=== PATIENT | male | born 1945 | race Caucasian/White ===

== ENCOUNTER 2017-11-12 11:08 | Outpatient (RCR) | payer MEDICARE ==
[~2017-11-12 11:08] MED LIST: ALB18R INH; AMLO-99 PO; ASPI-1471 PO; AZIT-1 PO; CALC-515 PO; CHOL100052 PO; CIPR-345 PO; DIPH-638 PO; GOLYTE PO; IBUP-56 PO; LOSA-54 PO; NIA500 PO; NIAC500T85 PO; OMEG500C5 PO; OMEP-218 PO; PHEN200T32 PO; PNEU0.5D3 IM; PRED20TA6 PO; ROSU20TA23 PO; SIMV-54 PO; TAMS0.4C25 PO; VERA120C9 PO; VERA240C10 PO
== END 2017-11-13 13:44 | disposition home or self-care (01) ==
LOC: RAON 11:08
PROVIDERS: ATTEND Radiology Radiation Oncology
DX: Z85.46 Personal history of malignant neoplasm of prostate (principal); E78.00 Pure hypercholesterolemia, unspecified; I10 Essential (primary) hypertension; E07.9 Disorder of thyroid, unspecified; Z79.82 Long term (current) use of aspirin; Z79.899 Other long term (current) drug therapy

== ENCOUNTER 2017-11-13 14:54 | Outpatient (RCR) | payer MEDICARE ==
[2017-11-12 11:24] VITALS: BP 130/84
== END 2017-11-23 10:22 | disposition home or self-care (01) ==
LOC: RAON 14:54
PROVIDERS: ATTEND Radiology Radiation Oncology
DX: Z85.46 Personal history of malignant neoplasm of prostate (principal); E78.00 Pure hypercholesterolemia, unspecified; I10 Essential (primary) hypertension; E07.9 Disorder of thyroid, unspecified; Z79.82 Long term (current) use of aspirin; Z79.899 Other long term (current) drug therapy
CPT/HCPCS: 36415; 84153; G0463; 99212

== ENCOUNTER → 2017-11-15 | Outpatient (CLI) | payer MEDICARE ==
--- NOTE | 2017-11-15 21:01 | RADIOLOGY IMAGING REPORT ---
FACILITY: [facility] - [place] PATIENT NAME: Armen West : 1945 MR: [id number] V: [id number] EXAM DATE: ORDERING PHYSICIAN: NEETU FAUST TECHNOLOGIST: Location: [facility] [place] Patient: Armen West : 1945 Visit/Account:[id number] Date of Sevice: 11/15/2017 EXAMINATION: CT pelvis without IV contrast HISTORY: History of prostate cancer. Follow-up prior bone abnormality. TECHNIQUE: Thin axial CT images of the pelvis were obtained without IV contrast, with coronal and sag ittal 2D reconstructed images. One of the following dose optimization techniques was utilized in the performance of this exam: Autom ated exposure control; adjustment of the mA and/or kV according to the patient's size; or use of an i terative reconstruction technique. Specific details can be referenced in the facility's radiology C T exam operational policy. COMPARISON: CT abdomen/pelvis 03/01/2017. MR pelvis 03/14/2017. FINDINGS: Small sclerotic foci in both iliac bones appear stable from the prior CT, including a focus of patchy sclerosis in the posterior left iliac bone and along the superior right iliac crest. No new or progr essive osseous lesions. No CT evidence of any discrete osseous lesion along the left sacrum to corres pond with the finding on the prior MRI. No acute osseous findings in the bony pelvis. Normal alignmen t at the hips and sacroiliac joints. Visualized portions of the small bowel and colon are normal in caliber, with scattered colonic divert iculosis. No pelvic adenopathy or free fluid. Brachytherapy seeds in the prostate. Vascular calcifica tions. IMPRESSION: 1. Small sclerotic regions in both iliac bones appear stable by CT and are favored to be benign. No n ew or progressive osseous lesions to suggest metastatic disease. 2. No acute findings in the pelvis. 3. Colonic diverticulosis. 4. Brachytherapy seeds in the prostate. Report Dictated By: Tito Dai MD at 11/15/2017 8:48 PM Report E-Signed By: Tito Dai MD at 11/15/2017 8:57 PM WSN:[id number]
== END ==
LOC: CT 15:18
PROVIDERS: ATTEND Radiology Radiation Oncology
DX: K57.30 Diverticulosis of large intestine without perforation or abscess without bleeding (principal); Z85.46 Personal history of malignant neoplasm of prostate
CPT/HCPCS: 72192

== ENCOUNTER → 2018-10-08 | Outpatient (CLI) | payer MEDICARE ==
[~2018-10-08] MED LIST changes: +AMLO-113 PO; -AMLO-99 PO; +CLON-327 PO; +FLU180SY11 IM; +PNEI IJ
== END ==
LOC: LAB 14:53
PROVIDERS: ATTEND Family Medicine
DX: Z92.89 Personal history of other medical treatment (principal); Z72.89 Other problems related to lifestyle
CPT/HCPCS: 36415; G0472; 86803

== ENCOUNTER 2018-12-17 08:58 | Outpatient (RCR) | payer MEDICARE ==
[2018-12-16 13:31] VITALS: BP 138/91
[2018-12-16 13:46] LABS: PLATELET COUNT, AUTOMATED 187 K/uL (150-450)
[~2018-12-17 08:58] MED LIST changes: -AMLO-113 PO; +AMLO-127 PO
--- NOTE | 2018-12-17 10:51 | ONCOLOGY FOLLOW UP NOTE ---
EVENT DATE: December 17, 2018 REASON FOR VISIT Oncology surveillance, status post brachytherapy for prostate carcinoma. . ONCOLOGY HISTORY 1. [place] 3+3 = 6/10 adenocarcinoma involving 40% of the core biopsy from the right middle lobe, 2% of the right lateral apex dated January 31, 2017. 2. Pre-treatment PSA of 5.8 ng/mL on December 13, 2016. CLINICAL STAGE T1c TREATMENT HISTORY Patient underwent Palladium-103 prostate brachytherapy with Dr. Bunch, delivering the radiation dose on April 12, 2017. INTERVAL HISTORY Mr. West was seen back in the Oncology Clinic for surveillance appointment, typically seen once or twice a year in this office. Denies any voiding complaints, nocturia 0-1. No dysuria. No bowel complaints. He does have some minor arthritic stiffness in the joints at times. PSA has been reasonably stable. In last November, the PSA was 1.4. The PSA dropped in March to 1.0 and now the PSA is 1.1 ng/mL as of December 16, 2018. CBC and CMP were normal. PAST MEDICAL HISTORY 1. Prostate carcinoma. 2. Hypercholesterolemia. 3. Hypertension. 4. Cardiac arrhythmias (first degree AV block and sinus bradycardia). 5. Sleep apnea. PAST SURGICAL HISTORY 1. Prostate biopsy. 2. Prior colonoscopy, April 2015. 3. Skin cancer removal. ALLERGIES IODINE, LATEX. MEDICATIONS 1. Crestor 20 mg daily. 2. Losartan/HCTZ 100/25 q. day. 3. Calcium carbonate 200 mg tablets one to four a day. 4. Aspirin 81 mg q. day. 5. Vitamin D3. 6. Clonidine 0.1 mg b.i.d. 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 Father has a history of melanoma. Brother had bladder carcinoma. Sister had lung carcinoma and skin cancer. He is a nonsmoker. He is with two sons and one daughter. 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 Rare alcohol use. POINT REVIEW OF SYSTEMS Negative with the exception of occasional joint pain and stiffness. Rare urgency related to caffeine intake. PHYSICAL EXAMINATION GENERAL: Pleasant 73-year old male who appears slightly younger than stated age. VITAL SIGNS: BP 147/94, pulse 68, respirations 16, O2 sat 93% on room air, weight 205 (down 8 pounds but intentional). No lymphadenopathy. LUNGS: Cta1 bilaterally. CARDIOVASCULAR: Heart sounds are regular. ABDOMEN: Soft. No gross organomegaly. RECTAL: Exam is performed and prostate is flat with no nodularity or tenderness. EXTREMITIES: No edema. NEUROLOGIC: Intact. IMPRESSION Overall, the patient is doing exceptionally well. I would like to see his PSA remain stable between the 1 and 2 range post therapy. No indication for additional tests at this time. Continue q.6 month PSA surveillance. Continue regular medical care with Dr. Green. I did note that the radiologist wanted a CT of the pelvis at his next visit just to look at the stability of some minor lung changes. I will talk to the patient about that recommendation at his next clinical appointment and schedule him for the procedure if he is willing. His weight loss is intentional due to diet and he denies any abdominal pain. No rectal bleeding or pressure. Patient was last seen by Dr. Green on November 24, 2018 and that note was reviewed for today's visit as well. SUSANNE
== END 2018-12-23 11:43 | disposition home or self-care (01) ==
LOC: RAON 08:58
PROVIDERS: ATTEND Radiology Radiation Oncology
DX: C61 Malignant neoplasm of prostate (principal); E78.00 Pure hypercholesterolemia, unspecified; I10 Essential (primary) hypertension; Z79.82 Long term (current) use of aspirin; Z79.899 Other long term (current) drug therapy; Z92.3 Personal history of irradiation; I44.0 Atrioventricular block, first degree; G47.30 Sleep apnea, unspecified
CPT/HCPCS: 36415; 84153; 85025; G0463; 82040; 82247; 82310; 82374; 82435; 82565; 82947; 84075; 84132; 84155; 84295; 84450; 84460; 84520; 99212

== ENCOUNTER 2019-02-18 20:51 | Emergency (ER) | payer MEDICARE ==
[~2019-02-18 20:51] MED LIST changes: -ROSU20TA23 PO; +ROSU20TA24 PO
--- NOTE | 2019-02-18 20:54 | ER Report ---
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 Patient injured his right ribs. Patient's been having pain there. They got worse over the last 24 hours. He notes he was packing his bags and lifting them that he noted increased pain and difficulty breathing on the right side. He notes acute spasm and it was back. He's had no hemoptysis, no shortness of breath, or chills. Patient admits that he has a previous history of fractured ribs on the side many years ago. REVIEW OF SYSTEMS: Respiratory: No cough, no dyspnea. Cardiovascular: No chest pain, no palpitations. Gastrointestinal: No vomiting, no abdominal pain. Musculoskeletal: No back pain. Allergies: Coded Allergies: latex (Verified Allergy, Severe, SWELLING OF LIPS, RESP DISTRESS, 02/18/19) Iodine and Iodide Containing Produc (Verified Allergy, Unknown, 02/18/19) Shellfish allergy Uncoded Allergies: HAYFEVER (Allergy, Intermediate, SINUS CONGESTION, 04/09/17) Home Meds Active Scripts Hydrocodone Bit/Acetaminophen (HYDROCODON-ACETAMINOPHEN 5-325) 1 Each Tablet, 1 EACH PO Q4-6H PRN for PAIN, #12 TAKE ONE TABLET BY MOUTH EVERY 4-6 HOURS NEEDED FOR PAIN Prov:SHI QUIJANO DO 02/18/19 Clonidine Hcl (CLONIDINE HCL) 0.1 Mg Tablet, 0.5-1 TAB PO BID for 90 Days, #135 TAB 4 Refills .5 tab in the am 1 full tab in the pm Prov:MARTINE BURNS MD 11/11/18 Rosuvastatin Calcium (CRESTOR) 20 Mg Tablet, 1 TAB PO QDAY for 90 Days, #90 TAB 4 Refills Prov:MARTINE BURNS MD 11/11/18 Losartan/Hydrochlorothiazide (LOSARTAN-HCTZ 100-25 MG TAB) 1 Each Tablet, 1 EACH PO QAM for 90 Days, #90 TAB 4 Refills Prov:MARTINE BURNS MD 11/11/18 Reported Medications Ibuprofen (IBUPROFEN) 200 Mg Tablet, 1-2 TAB PO PRN, TAB Pt states that he only takes about once a month. 04/09/17 Calcium Carbonate (TUMS) 200 Mg Tab.chew, 500 MG PO PRN, TAB.CHEW 04/09/17 Aspirin (ASPIR 81) 81 Mg Tablet.dr, 1 TAB PO QDAY 01/23/17 Cholecalciferol (Vitamin D3) (VITAMIN D) 1,000 Unit Tablet, 1 TAB PO QDAY 11/16/14 Reviewed Nurses Notes: Yes Old Medical Records Reviewed: Yes Hx Smoking: No (CHEWED TOBACCO FOR A YEAR. ) Smoking Status: Never Smoker Exposure to Second Hand Smoke?: No Hx Alcohol Use: Yes Constitutional Vital Sign - Last 24 Hours 02/18/19 20:57 Pulse 69 Resp 14 B/P (MAP) 176/108 Pulse Ox 96 O2 Delivery Room Air Physical Exam General Appearance: The patient is alert, has no immediate need for airway protection and no current signs of toxicity. Mild distress, vital signs stable, pulse ox normal, splinting respiration Eyes: Pupils equal and round no injection. Respiratory: Chest is non tender, lungs are clear to auscultation. Tenderness to the right lateral ribs. [place], no bruising, no crepitus, no subcutaneous ai r Cardiac: regular rate and rhythm Gastrointestinal: Abdomen is soft and non tender, no masses, bowel sounds normal. Musculoskeletal: Neck: Neck is supple and non tender. Extremities have full range of motion and are non tender. Skin: No rashes or lesions. DIFFERENTIAL DIAGNOSIS: After history and physical exam differential diagnosis was considered for rib fracture, chest wall contusion, pneumothorax, hemothorax, chest wall strain, lumbar strain, thoracic strain Medical Decision Making EKG/Imaging Imaging X-ray: Two-view chest x-ray, two-view, right lateral oblique ribs was obtained. I viewed the images myself on the PACS system. My interpretation of the images is: No acute rib fracture was noted, no pneumothorax, no hemothorax, overt fractures noted. The radiologist interpretation had no clinically significant variation from this interpretation. ED Course/Re-evaluation ED Course Patient was admitted to an examination room. H&P was done. The differential diagnoses was considered. On clinical examination. Patient has tenderness to his right lateral posterior ribs. Patient's medicated with Tylenol and ibuprofen. Diagnostic x-rays are ordered. Patient drove himself here and we avoided strong pain medication since he will drive home. Patient's diagnostic x-rays were unremarkable for new rib fractures. Patient's advised heat to the affected area. Continue ibuprofen. He is given a prescription for Lortab for pain relief. Patient advised to follow-up with primary care if unimproved in 3- 5 days. Decision to Disposition Date: Feb 18, 2019 Decision to Disposition Time: 22:14 Depart Departure Latest Vital Signs Vital Signs Date Time Temp Pulse Resp B/P (MAP) Pulse Ox O2 Delivery O2 Flow Rate FiO2 02/18/19 20:57 69 14 176/108 96 Room Air Impression: Primary Impression: Contusion of rib on right side Condition: Improved Disposition: HOME OR SELF-CARE Referrals: MARTINE BURNS MD (PCP) New Scripts Hydrocodone Bit/Acetaminophen (HYDROCODON-ACETAMINOPHEN 5-325) 1 Each Tablet 1 EACH PO Q4-6H PRN for PAIN, #12 TAKE ONE TABLET BY MOUTH EVERY 4-6 HOURS NEEDED FOR PAIN Prov: SHI QUIJANO DO 02/18/19 Patient Instructions: Rib Contusion (ED) Additional Instructions: Take ibuprofen 200 mg 3 tablets 3 times a day with food Apply heating pad to the affected area Hold the injured area and take breaths every 1-2 hours while awake to prevent collapse of the lung tissue Follow-up with primary care if unimproved in 3-5 days Problem Qualifiers Primary Impression: Contusion of rib on right side Encounter type: initial encounter Qualified Codes: S20.211A - Contusion of right front wall of thorax, initial encounter SHI QUIJANO DO Feb 18, 2019 20:54
[2019-02-18 20:57] VITALS: BP 176/108
[2019-02-18] MEDS ORDERED: ACETAMINOPHEN 325 MG TAB PO ONE (21:00)
[2019-02-18] MEDS ORDERED: IBUPROFEN 600 MG TAB PO ONE (21:00)
[2019-02-18] MEDS ORDERED: LOR5/325 PO (22:15)
[2019-02-18] MEDS ORDERED: ACET/HYDROC 5/325MG TH ER ONLY 2 TAB/BOTTLE PO ONE (22:15)
--- NOTE | 2019-02-18 22:16 | RADIOLOGY IMAGING REPORT ---
FACILITY: [facility] [place] PATIENT NAME: Armen West : 1945 MR: [id number] V: [id number] EXAM DATE: [id number] ORDERING PHYSICIAN: SHI QUIJANO TECHNOLOGIST: Location: [facility] [place] Patient: Armen West : 1945 Visit/Account:[id number] Date of Sevice: 02/18/2019 INDICATION: L4 days ago, right rib pain. EXAM DATE: 02/18/2019 8:59 PM COMPARISON: None. FINDINGS: PA and lateral views of the chest with AP and oblique views of the right ribs. Mineralization is norm al. No acute alignment abnormality or fracture. Remote appearing lateral fractures of the right 6th, 7th and 8th ribs. Lungs are well-expanded and clear. No pleural effusion or pneumothorax. Heart size is normal. Soft tissues are unremarkable. IMPRESSION: 1. No apparent acute cardiopulmonary abnormality or right rib fracture. 2. Remote appearing right 6th through 8th rib fractures. Report Dictated By: Alex Borja MD at 02/18/2019 10:09 PM Report E-Signed By: Alex Borja MD at 02/18/2019 10:12 PM WSN:[id number]
--- NOTE | 2019-02-18 22:17 | RADIOLOGY IMAGING REPORT ---
FACILITY: [facility] PATIENT NAME: Armen West : 1945 MR: [id number] V: [id number] EXAM DATE: ORDERING PHYSICIAN: SHI QUIJANO TECHNOLOGIST: Location: [facility] [place] Patient: Armen West : 1945 Visit/Account:[id number] Date of Sevice: 02/18/2019 INDICATION: L4 days ago, right rib pain. EXAM DATE: 02/18/2019 8:59 PM COMPARISON: None. FINDINGS: PA and lateral views of the chest with AP and oblique views of the right ribs. Mineralization is norm al. No acute alignment abnormality or fracture. Remote appearing lateral fractures of the right 6th, 7th and 8th ribs. Lungs are well-expanded and clear. No pleural effusion or pneumothorax. Heart size is normal. Soft tissues are unremarkable. IMPRESSION: 1. No apparent acute cardiopulmonary abnormality or right rib fracture. 2. Remote appearing right 6th through 8th rib fractures. Report Dictated By: Alex Borja MD at 02/18/2019 10:09 PM Report E-Signed By: Alex Borja MD at 02/18/2019 10:12 PM WSN:[id number]
== END 2019-02-18 22:26 | disposition home or self-care (01) ==
LOC: ER 21:18
DX: S20.211A Contusion of right front wall of thorax, initial encounter (principal)
CPT/HCPCS: 71046; 71100; 99284; A9270